=== PATIENT | female | born 1945 | race Caucasian/White ===

== ENCOUNTER → 2019-07-23 | Outpatient (CLI) | payer MEDICARE, OTHER ==
[~2019-07-23] MED LIST: ASPI-630 PO; ATOR10TA PO; CYCL-331 PO; DESV25TA7 PO; HYDR10CA3 PO; LEVO88TA2 PO; LUBI24CA7 PO; LURA120T PO; METF-550 PO; METO25TA4 PO; QUET400T4 PO; TOLT4CAP PO; TRAZ-120 PO; ZONI100C33 PO
== END | disposition home or self-care (01) ==
LOC: LAB 09:00
PROVIDERS: ATTEND Registered Nurse
DX: Z11.59 Encounter for screening for other viral diseases (principal)
CPT/HCPCS: C9803; U0003; 87426

== ENCOUNTER → 2019-07-25 | Day surgery (SDC) | payer MEDICARE, OTHER ==
[~2019-07-25] MED LIST changes: +IV RINGERS SOLUTION,LACTATED 1,000 ML IV SCH; +PROPOFOL 10,000 MCG/ML (20ML) VIAL IV ONE
[2019-07-25 10:01] VITALS: BP 141/71
--- NOTE | 2019-07-26 17:07 | PATHOLOGY ---
[facility] Accession Number: [id number] . 01 Material submitted: . esophagus - ESOPHAGEAL BIOPSY . 01 Clinical history: . R/O EOE . 02 Diagnosis: Esophageal biopsies: - Reflux esophagitis. ([facility] 07/26/2019) [facility] 07/26/2019 1359 Local . 02 Comment: Sections of the esophageal biopsy reveal segments of focally tangentially oriented, hyperplastic squamous esophageal mucosa. The findings are consistent with reflux esophagitis. There is no evidence of an eosinophilic esophagitis. There is no evidence of Lazaro's change, dysplasia or malignancy. ([facility] 07/26/2019) . 02 Electronically signed: . Blair Forbes MD, Pathologist NPI- [id number] . 01 Gross description: . The specimen is received in formalin, labeled "Sheeba Mckinley, esophageal biopsy, R/O EOE". Received are five segments of pale mccormick soft tissue ranging in size from 0.2 to 0.5 cm in maximum dimensions. The specimen is submitted entirely in cassette A1. ([facility]; 07/25/2019) [facility] 07/25/2019 1651 Local . 02 Pathologist provided ICD-10: K21.0 . 02 CPT . 106249 Specimen Comment: A courtesy copy of this report has been sent to [phone], [phone] Specimen Comment: [id number] Specimen Comment: Report sent to / DR ALBERTS Performed at: 01 [facility] [address], [place] [id number] MD Johan Huber MD Phone: [phone] Performed at: 02 [facility] [address], [place] [id number] MD Blair Forbes MD Phone: [phone]
== END | disposition home or self-care (01) ==
LOC: SURG 07:51
PROVIDERS: ATTEND Internal Medicine Gastroenterology
DX: R13.10 Dysphagia, unspecified (principal); I10 Essential (primary) hypertension; E78.00 Pure hypercholesterolemia, unspecified; K21.0 Gastro-esophageal reflux disease with esophagitis; F31.9 Bipolar disorder, unspecified; E11.9 Type 2 diabetes mellitus without complications; E03.9 Hypothyroidism, unspecified; Z88.8 Allergy status to other drugs, medicaments and biological substances; Z79.82 Long term (current) use of aspirin; Z79.84 Long term (current) use of oral hypoglycemic drugs; Z79.899 Other long term (current) drug therapy; Z98.890 Other specified postprocedural states; Z88.1 Allergy status to other antibiotic agents
CPT/HCPCS: 43239; 43450; 88305; J2704; J7120; 45380

== ENCOUNTER → 2020-04-23 | Outpatient (CLI) | payer MEDICARE, OTHER ==
[2019-07-25 10:01] VITALS: BP 141/71
[~2020-04-23] MED LIST changes: -IV RINGERS SOLUTION,LACTATED 1,000 ML IV SCH; -METF-550 PO; +METF-638 PO; -PROPOFOL 10,000 MCG/ML (20ML) VIAL IV ONE
--- NOTE | 2020-04-28 09:21 | RAD ---
DATE: 04/23/2020 12:55 PM EXAM: DIGITAL SCREEN BILAT W/CAD HISTORY: Screening COMPARISON: 03/19/2018 Bilateral full field craniocaudal and mediolateral oblique images were obtained using digital technique. Implant displaced CC and MLO views were also obtained. This study was interpreted with the benefit of Computerized Aided Detection (CAD). FINDINGS: Breast Density: SCATTERED The breast parenchyma shows scattered fibroglandular densities. Breast parenchyma level B Bilateral subpectoral implants are redemonstrated. No suspicious masses, microcalcifications or architectural distortion is present to suggest malignancy in either breast. The visualized axillae are unremarkable. IMPRESSION: No mammographic evidence of malignancy. BI-RADS CATEGORY: 1 NEGATIVE RECOMMENDED FOLLOW-UP: 12M 12 MONTH FOLLOW-UP Annual screening mammography is recommended, unless clinically indicated sooner based on symptoms or change in physical exam. PQRS compliance statement: Patient information was entered into a reminder system with a target due date for the next mammogram. Mammography is a sensitive method for finding small breast cancers, but it does not detect them all and is not a substitute for careful clinical examination. A negative mammogram does not negate a clinically suspicious finding and should not result in delay in biopsying a clinically suspicious abnormality. "Our facility is accredited by the [employer] Mammography Program."
== END ==
LOC: MAMMO 12:47
PROVIDERS: ATTEND Family Medicine
DX: Z12.31 Encounter for screening mammogram for malignant neoplasm of breast (principal)
CPT/HCPCS: 77067

== ENCOUNTER → 2021-06-30 | Outpatient (CLI) | payer MEDICARE, OTHER ==
[2019-07-25 10:01] VITALS: BP 141/71
[~2021-06-30] MED LIST changes: -CYCL-331 PO; +CYCL10TA19 PO
--- NOTE | 2021-06-30 13:05 | RAD ---
Digital Mammogram Bilateral History: Routine screening Technique: 2-D digital CC and MLO views were obtained with and without the patient's implants displ aced. CAD - computer aided detection was utilized. Comparison: Mammograms from 04/23/2020 and 11/24/2016.. Findings: Breast Tissue Density B : There are scattered areas of fibroglandular density There are no suspicious masses, malignant appearing calcifications, or areas of architectural distort ion. The retropectoral silicone breast implants show normal contour. Impression: No evidence of malignancy. Assessment: BI-RADS Category 1: Negative. Recommendation: Routine screening mammograms. The patient will receive a letter with the results in the mail. Patient information will be entered i nto the mammography reminder system with a target recall date for the next mammogram. A reminder callie er will be generated. Electronically signed by: Marina Catherine MD (06/30/2021 1:03 PM) [id number]
== END ==
LOC: MAMMO 10:54
PROVIDERS: ATTEND Family Medicine
DX: Z12.31 Encounter for screening mammogram for malignant neoplasm of breast (principal)
CPT/HCPCS: 77067